=== PATIENT | female | born 1975 | race Caucasian/White ===

== ENCOUNTER 2021-11-01 15:31 | Outpatient (RCR) | payer OTHER, SELFPAY | END 2022-06-14 13:46 | disposition home or self-care (01) | PROVIDERS: PCP Family Medicine; Visit Provider Family Medicine | DX: M54.9 Dorsalgia, unspecified (principal); M54.2 Cervicalgia; Z51.89 Encounter for other specified aftercare | CPT/HCPCS: 97012; 97110; 97162 ==

== ENCOUNTER 2021-12-29 11:57 | Outpatient (CLI) | payer OTHER, SELFPAY ==
[2021-12-31 22:22] LABS: Follicle Stimulating Hormone 30.7 IU/L
== END 2021-12-29 11:58 | disposition home or self-care (01) ==
PROVIDERS: PCP Family Medicine; Visit Provider Obstetrics & Gynecology
DX: N92.6 Irregular menstruation, unspecified (principal)
CPT/HCPCS: 83001; 84443

== ENCOUNTER 2022-01-27 07:20 | Outpatient (CLI) | payer OTHER, SELFPAY ==
--- NOTE | 2022-01-27 07:15 | CRLHL7_ITS ---
For Patients: As a result of the Century Cures Act, medical imaging exams and procedure reports are released immediately into your electronic medical record. You may view this report before your referring provider. If you have questions, please contact your health care provider. INDICATION: menorrhagia COMPARISON: 04/17/2020 TECHNIQUE: 2D quigley scale and color Doppler images were acquired of the pelvis using a transabdominal and transvaginal approach. FINDINGS: Sonographic images demonstrate a normal size and smooth outer contour of the uterus. Uterus measures 9.7 cm in length by 4.5 cm in AP diameter by 5.6 cm in transverse dimension. The myometrium has a normal uniform echotexture. The endometrial lining measures 12 mm in composite thickness. The right ovary measures 2.4 x 1.4 x 1.9 cm in size and the left ovary measures 3.2 x 1.9 x 2.3 cm. The ovaries demonstrate normal arterial and venous blood flow on color Doppler analysis. There are no suspicious fluid collections within the cul-de-sac. IMPRESSION: Endometrial thickness 12 millimeters. No uterine fibroid. Dictated by Petey Snell MD @ 01/28/2022 11:44:01 AM (Electronically Signed)
== END 2022-01-27 07:21 | disposition home or self-care (01) ==
LOC: US 07:21
PROVIDERS: PCP Family Medicine; Visit Provider Obstetrics & Gynecology
DX: N92.0 Excessive and frequent menstruation with regular cycle (principal); R93.89 Abnormal findings on diagnostic imaging of other specified body structures
CPT/HCPCS: 76830; 76856

== ENCOUNTER 2022-11-21 08:46 | Outpatient (CLI) | payer OTHER, SELFPAY | END 2022-11-21 08:47 | disposition home or self-care (01) | LOC: NFLDREF 08:48 | PROVIDERS: PCP Family Medicine; Visit Provider Obstetrics & Gynecology | DX: R30.9 Painful micturition, unspecified (principal) | CPT/HCPCS: 87086 ==

== ENCOUNTER 2022-12-14 07:16 | Emergency (ER) | payer OTHER, SELFPAY ==
[2022-12-14 07:30] VITALS: BP 106/71; PULSE 86; RESP 16; TEMP 36.6; O2SAT 100; BMI 20.8
[2022-12-14 07:44] LABS: Appearance Urine Slightly Cloudy (Clear); Bilirubin Urine 1+ (Negative); Blood Urine 3+ (Negative); Color Urine Brown (Yellow); Glucose Urine Negative (Negative); Ketones Urine Trace (Negative); Leukocyte Esterase Urine Trace (Negative); Nitrite Urine Positive (Negative); Protein Urine 3+ (Negative); Specific Gravity Urine >= 1.030 (1.000-1.030)
[2022-12-14 07:53] LABS: Bacteria Urine Many; RBC Urine >100 (0-2); Squamous Epithelial Cell Urine Few (None-Few); WBC Urine 50-100 (0-5)
[2022-12-14 07:55] LABS: WBC Clumps Urine Few
--- NOTE | 2022-12-14 08:07 | ED_ITS ---
HPI - General Adult General Chief complaint: Urogenital Problems, Female Stated complaint: bladder infection Time Seen by Provider: 12/14/22 07:57 History of Present Illness HPI narrative: Rosanne is a 47-year-old female who is very pleasant who has had a urinary tract infection symptoms since yesterday. She has had several since October. She has had trouble with this in the past. No other specific complaints. Patient denies a significant fever rigors, does report a little bit of suprapubic discomfort, hematuria Related Data Home Medications Medication Instructions Recorded Confirmed Lactobacillus cap PO QDAY 01/27/22 01/27/22 acidophil,plantar-Bifido no.7 15 billion cell capsule (up4 Probiotics Adult) multivitamin 1 tab PO QAM 01/27/22 12/14/22 Previous Rx's Medication Instructions Recorded ciprofloxacin HCl 250 mg tablet 250 mg PO BID #10 tabs 12/14/22 (Cipro) Allergies Allergy/AdvReac Type Severity Reaction Status Date / Time Sulfa (Sulfonamide Allergy Severe tongue and Verified 12/14/22 07:30 Antibiotics) lip swelling Review of Systems Status of ROS: Reports: 6 or more systems reviewed and unremarkable except as noted in History and below PFSH PFS Medical History Irregular menstrual cycle ?N92.6 - Irregular menstruation, unspecified (ICD-10) Methicillin resistant Staphylococcus aureus culture positive (2014) ?Z22.322 - Carrier or suspected carrier of Methicillin resistant Staphylococcus aureus (ICD-10) Dysfunction of eustachian tube ?H69.80 - Other specified disorders of Eustachian tube, unspecified ear (ICD- 10) History of hypothyroidism ?Z86.39 - Personal history of other endocrine, nutritional and metabolic disease (ICD-10) Surgical History History of tonsillectomy (1985) ?Z90.89 - Acquired absence of other organs (ICD-10) History of section (1997) ?Z98.891 - History of uterine scar from previous surgery (ICD-10) Family History Paternal Grandfather Breast cancer Father Diabetes Maternal Grandfather Myocardial infarction, Onset Age: 60 Mother Breast cancer, Onset Age: 66 Social History Narrative: Does not drink alcohol 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 , customer service Celine, 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 No cyanosis Const: Vital Signs, click to edit/add: Vital Signs - 24 hr 12/14/22 07:30 Temperature 98 F Pulse Rate [Pulse Oximeter] 86 Respiratory Rate 16 Blood Pressure [Ri ght Upper Arm] 106/71 Pulse Oximetry 100 Oxygen Delivery Me thod Room Air Course Vital Signs Vital signs: Initial Vital Signs Temperature 98 F 12/14/22 07:30 Temperature Source Temporal Artery Scan 12/14/22 07:30 Pulse Rate 86 12/14/22 07:30 Respiratory Rate 16 12/14/22 07:30 Blood Pressure 106/71 12/14/22 07:30 Blood Pressure Mean 82 12/14/22 07:30 Blood Pressure Position Sitting 12/14/22 07:30 Pulse Oximetry 100 12/14/22 07:30 Oxygen Delivery Method Room Air 12/14/22 07:30 Vital Signs Temperature 98 F 12/14/22 07:30 Pulse Rate 86 12/14/22 07:30 Respiratory Rate 16 12/14/22 07:30 Blood Pressure 106/71 12/14/22 07:30 Pulse Oximetry 100 12/14/22 07:30 Oxygen Delivery Method Room Air 12/14/22 07:30 Temperature 98 F 12/14/22 07:30 Pulse Rate 86 12/14/22 07:30 Respiratory Rate 16 12/14/22 07:30 Blood Pressure 106/71 12/14/22 07:30 Pulse Oximetry 100 12/14/22 07:30 Oxygen Delivery Method Room Air 12/14/22 07:30 Medical Decision Making MDM Narrative Medical decision making narrative: 47 year white female with a history of UTI with a urinary tract infection. Patient did not appear to have flank tenderness consistent with pyelo or fever. I think at this point given she has 50-100 white cells per high-powered field and red cells, will treat with IM Rocephin now and then Cipro for home. Rest fluids observation light activity, return to primary care as needed, return to ED problems or concerns or worsening. Lab Data Labs: Lab Results 12/14/22 Range/Units 07:35 Urine Color Brown A (Yellow) Urine Appearance Slightly Cloudy A (Clear) Urine pH 6.0 (5.0-8.5) Ur Specific [place] >= 1.030 (1.000-1.030) Urine Protein 3+ A (Negative) Urine Glucose (UA) Negative (Negative) Urine Ketones Trace A (Negative) Urine Blood 3+ A (Negative) Urine Nitrite Positive A (Negative) Urine Bilirubin 1+ A (Negative) Urine Urobilinogen 1.0 (0.2-1.0) Ur Leukocyte Esterase Trace A (Negative) Urine RBC >100 A (0-2) Urine WBC 50-100 A (0-5) Urine WBC Clumps Few A (None) Ur Squamous Epith Cells Few (None-Few) Urine Bacteria Many A (None) Discharge Plan Discharge Clinical Impression: UTI (urinary tract infection) Patient Disposition: Home, Self-Care Condition: Stable Additional Instructions: Rest fluids, light activity, antibiotics as prescribed. Return to primary care as needed. Activity Level: Light activity Discharge Diet: Regular Prescriptions: New ciprofloxacin HCl [Cipro] 250 mg tablet 250 mg PO BID Qty: 10 0RF No Action up4 Probiotics Adult 15 billion cell capsule PO QDAY multivitamin Tablet 1 tab PO QAM Follow Up/Referrals: Darlene Wilde MD [Primary Care Provider] - Stand Alone Forms: [employer] Info Instructions
[2022-12-14] MEDS: LIDOCAINE 1% 5 ml (pf) 5 ML VIAL 1 ML IM (08:10)
[2022-12-14] MEDS: cefTRIAXone 500 MG VIAL IM (08:10)
== END 2022-12-14 08:20 | disposition home or self-care (01) ==
LOC: ED 08:17
PROVIDERS: Emergency Provider Family Medicine; PCP Family Medicine
DX: N39.0 Urinary tract infection, site not specified (principal)
CPT/HCPCS: 81001; 87086; 96372; 99283; J0696

== ENCOUNTER 2023-01-30 11:43 | Outpatient (CLI) | payer OTHER, SELFPAY | END 2023-01-30 11:44 | disposition home or self-care (01) | LOC: NFLDREF 11:45 | PROVIDERS: PCP Family Medicine; Visit Provider Family Medicine | DX: U07.1 COVID-19 (principal) | CPT/HCPCS: 80048 ==

== ENCOUNTER 2023-02-07 10:27 | Outpatient (CLI) | payer OTHER, SELFPAY ==
[2023-02-09 03:00] LABS: Bacterial Vaginosis by TMA Negative; Candida glabrata by TMA Negative; Candida species by TMA Positive; Trichomonas vaginalis by TMA Negative
== END 2023-02-07 10:28 | disposition home or self-care (01) ==
PROVIDERS: PCP Family Medicine; Visit Provider Obstetrics & Gynecology
DX: B37.31 Acute candidiasis of vulva and vagina (principal)
CPT/HCPCS: 81513; 87086; 87481; 87661

== ENCOUNTER 2023-02-23 16:49 | Emergency (ER) | payer OTHER, SELFPAY ==
[2023-02-23 16:53] VITALS: BP 129/84; PULSE 82; RESP 16; TEMP 36.5; O2SAT 100; BMI 21.3
--- NOTE | 2023-02-23 17:26 | CRLHL7_ITS ---
For Patients: As a result of the Century Cures Act, medical imaging exams and procedure reports are released immediately into your electronic medical record. You may view this report before your referring provider. If you have questions, please contact your health care provider. INDICATION: Abnormal bleeding. TECHNIQUE: Transvaginal pelvic ultrasound examination was performed. Real-time sonographic images with spectral and color Doppler imaging of the ovaries were obtained. COMPARISON: Pelvic ultrasound 01/27/2022. FINDINGS: Uterus: 9.9 x 4.4 x 5.2 cm. Normal echotexture of the myometrium. No uterine masses. Endometrium: Endometrial thickness measures 15 mm. Thickened and heterogeneous appearance of the endometrium. Right ovary: 3.2 x 0.8 x 2.2 cm. No ovarian or adnexal masses. Normal arterial and venous blood flow on color Doppler imaging. Left ovary: 4.2 x 1.7 x 2.8 cm. No ovarian or adnexal masses. Normal arterial and venous blood flow on color Doppler imaging. Cul-de-sac: No significant free fluid. IMPRESSION: Endometrial thickness measuring 15 mm. No uterine fibroids identified. Dictated by Zev Cavazso MD @ 02/23/2023 7:10:24 PM (Electronically Signed)
--- NOTE | 2023-02-23 17:30 | ED.FEMALEGU ---
HPI - Female Genitourinary General Chief complaint: Urogenital Problems, Female Stated complaint: vaginal bleeding Time Seen by Provider: 02/23/23 16:56 History of Present Illness HPI Narrative: This 47-year-old female comes in reporting persistent vaginal bleeding over the past 9 days. It seemed to be worse today with bright red blood. She states that she has changed her pad about 4 times today. She does not report any lightheadedness or shortness of breath. She states that her last menses was about 3 months ago. She has been using a vaginal estrogen cream recently. Related Data Home Medications Medication Instructions Recorded Confirmed Lactobacillus cap PO QDAY 01/27/22 02/07/23 acidophil,plantar-Bifido no.7 15 billion cell capsule (up4 Probiotics Adult) multivitamin 1 tab PO QAM 01/27/22 02/07/23 Previous Rx's Medication Instructions Recorded estradiol 0.01% (0.1 mg/gram) 0.5 g vaginal 2XW #42.5 grams 02/07/23 vaginal cream (Estrace) fluconazole 150 mg tablet 150 mg PO QDAY 1 dose #1 tab 02/09/23 medroxyprogesterone 10 mg tablet 10 mg PO TIDWM #21 tabs 02/23/23 (Provera) Allergies Allergy/AdvReac Type Severity Reaction Status Date / Time Sulfa (Sulfonamide Allergy Severe tongue and Verified 02/23/23 16:56 Antibiotics) lip swelling Review of Systems Status of ROS: Reports: 10 or more systems reviewed and unremarkable except as noted in History and below Narrative: Constitutional: No fevers, no weight gain or loss. Eyes: No discharge. No vision changes. HENT: No congestion, no sore throat, no ear pain. Cardiovascular: No chest pain, no palpitations. Respiratory: No shortness of breath, no wheezes, no cough. Gastrointestinal: No abdominal pain, no vomiting, no diarrhea. Genitourinary: No dysuria, no hematuria. Vaginal bleeding as described above. Musculoskeletal: Normal range of motion. Skin: No rashes, no pruritis. Neurological: No dizziness, weakness, sensory change, speech change. Endo/Heme/Allergies: No bruising or bleeding. No polydipsia. Pysch: no suicidality, no anxiety, no insomnia. All other systems reviewed and are negative. [facility] Medical History (Updated 02/23/23 @ 17:50 by Terry Luther MD) COVID-19 ?U07.1 - COVID-19 (ICD-10) Anxiety (03/31/09) ?F41.9 - Anxiety disorder, unspecified (ICD-10) Irregular menstrual cycle ?N92.6 - Irregular menstruation, unspecified (ICD-10) Methicillin resistant Staphylococcus aureus culture positive (2014) ?Z22.322 - Carrier or suspected carrier of Methicillin resistant Staphylococcus aureus (ICD-10) Dysfunction of eustachian tube ?H69.80 - Other specified disorders of Eustachian tube, unspecified ear (ICD-10) History of hypothyroidism ?Z86.39 - Personal history of other endocrine, nutritional and metabolic disease (ICD-10) Surgical History History of tonsillectomy (1985) ?Z90.89 - Acquired absence of other organs (ICD-10) History of section (1997) ?Z98.891 - History of uterine scar from previous surgery (ICD-10) Family History Paternal Grandfather Breast cancer Father Diabetes High blood pressure High cholesterol Maternal Grandfather Myocardial infarction, Onset Age: 60 Mother Breast cancer, Onset Age: 66 Brother Thyroid disease Social History Narrative: Does not drink alcohol 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 HEENT: Normocephalic, atraumatic. Neck: Normal range of motion. Nontender. Supple. Heart: Intact distal pulses. Lungs: No chest discomfort. No wheezes, rhonchi, or rales. Abdomen: Nontender. Back: Normal range of motion. Extremities: Normal range of motion. No injury. Skin: Intact. No rash. Warm. No erythema or pallor. Neurologic: No altered sensation. No weakness. Alert and oriented. Psychiatric: No suicidality. No anxiety or depression. No insomnia. Nursing notes and vitals signs are reviewed. Const: Vital Signs, click to edit/add: Vital Signs - 24 hr 02/23/23 16:53 Temperature 97.7 F Pulse Rate [Right Pulse Oximeter] 82 Respiratory Rate 16 Blood Pressure [Ri ght Upper Arm] 129/84 Pulse Oximetry 100 Oxygen Delivery Me thod Room Air Course Vital Signs Vital signs: Initial Vital Signs Temperature 97.7 F 02/23/23 16:53 Temperature Source Temporal Artery Scan 02/23/23 16:53 Pulse Rate 82 02/23/23 16:53 Pulse Rhythm Regular 02/23/23 16:53 Pulse Strength 3+ Normal 02/23/23 16:53 Respiratory Rate 16 02/23/23 16:53 Blood Pressure 129/84 02/23/23 16:53 Blood Pressure Mean 99 02/23/23 16:53 Blood Pressure Position Sitting 02/23/23 16:53 Pulse Oximetry 100 02/23/23 16:53 Oxygen Delivery Method Room Air 02/23/23 16:53 Vital Signs Temperature 97.7 F 02/23/23 16:53 Pulse Rate 82 02/23/23 16:53 Respiratory Rate 16 02/23/23 16:53 Blood Pressure 129/84 02/23/23 16:53 Pulse Oximetry 100 02/23/23 16:53 Oxygen Delivery Method Room Air 02/23/23 16:53 Temperature 97.7 F 02/23/23 16:53 Pulse Rate 82 02/23/23 16:53 Respiratory Rate 16 02/23/23 16:53 Blood Pressure 129/84 02/23/23 16:53 Pulse Oximetry 100 02/23/23 16:53 Oxygen Delivery Method Room Air 02/23/23 16:53 MDM - Female Genitourinary MDM Narrative Medical decision making narrative: This 47-year-old female comes in with persistent uterine bleeding over these past 9 days. I did speak with the OBGYN physician on-call, Dr. Cavazos, who recommended that she have an ultrasound today. The patient does have a follow-up appointment with her physician next week wear further evaluation and treatment can occur. The patient does have normal vital signs and otherwise is in no acute distress. The patient received a prescription for Provera 10 mg 3 times daily for 7 days. Discharge Plan Discharge Clinical Impression: DUB (dysfunctional uterine bleeding) Patient Disposition: Home, Self-Care Condition: Stable Additional Instructions: Take medication as prescribed. Follow-up with OBGYN clinic as scheduled. Return if worsening. Prescriptions: New medroxyprogesterone [Provera] 10 mg tablet 10 mg PO TIDWM Qty: 21 0RF No Action up4 Probiotics Adult 15 billion cell capsule PO QDAY multivitamin Tablet 1 tab PO QAM estradiol [Estrace] 0.01 % (0.1 mg/gram) cream 0.5 g vaginal 2XW Qty: 42.5 3RF Rx Instructions: Use nightly for 2 weeks, then twice weekly. May apply with finger. fluconazole 150 mg tablet 150 mg PO QDAY Qty: 1 0RF Rx Instructions: administer on day 1 of therapy Follow Up/Referrals: Darlene Wilde MD [Primary Care Provider] - Stand Alone Forms: [employer] Info Instructions
== END 2023-02-23 18:31 | disposition home or self-care (01) ==
PROVIDERS: Emergency Provider Emergency Medicine Emergency Medical Services; PCP Family Medicine
DX: N93.8 Other specified abnormal uterine and vaginal bleeding (principal)
CPT/HCPCS: 76830; 99284

== ENCOUNTER 2023-03-02 09:08 | Emergency (ER) | payer OTHER, SELFPAY ==
[2023-03-02 09:15] VITALS: BP 126/86; PULSE 108; RESP 16; TEMP 37.3; O2SAT 100; BMI 21.3
--- NOTE | 2023-03-02 09:37 | ED.PREGNANCY ---
HPI - General Date Seen: 03/02/23 Chief complaint: Vaginal Bleeding Stated complaint: Hemorrhaging Time Seen by Provider: 03/02/23 09:22 Source: patient Mode of arrival: ambulatory Limitations: no limitations History of Present Illness HPI Narrative: Patient is a 47-year-old female with a history of dysfunctional uterine bleeding presenting to the emergency department for vaginal bleeding. Her OB, Dr. Bruce, has been working with her for dysfunctional uterine bleeding. Patient is on Provera for the bleeding. She decreased the dose per her OB Gyne recommendation last night. She does started noticing vaginal bleeding had lower abdominal and pelvic cramping. This morning she woke up and noticed a large amount of vaginal bleeding. She states she is going through a pad every 30-40 minutes over the past 2 hours. ML spoke to her field cane scaler today and was told to come to the emergency department for evaluation. Denies fevers, chills, chest pain, shortness of breath, lightheadedness, dizziness, nausea/vomiting, weakness. No other concerns noted at this time Related Data Home Medications Medication Instructions Recorded Confirmed Lactobacillus cap PO QDAY 01/27/22 02/07/23 acidophil,plantar-Bifido no.7 15 billion cell capsule (up4 Probiotics Adult) multivitamin 1 tab PO QAM 01/27/22 02/07/23 Previous Rx's Medication Instructions Recorded estradiol 0.01% (0.1 mg/gram) 0.5 g vaginal 2XW #42.5 grams 02/07/23 vaginal cream (Estrace) medroxyprogesterone 10 mg tablet 10 mg PO TIDWM #21 tabs 02/23/23 (Provera) medroxyprogesterone 10 mg tablet 10 mg PO QDAY #45 tabs 03/01/23 Allergies Allergy/AdvReac Type Severity Reaction Status Date / Time Sulfa (Sulfonamide Allergy Severe tongue and Verified 03/01/23 09:53 Antibiotics) lip swelling Review of Systems Status of ROS: Reports: 10 or more systems reviewed and unremarkable except as noted in History and below [facility] Medical History (Updated 03/02/23 @ 10:49 by Allan Farmer DO) COVID-19 ?U07.1 - COVID-19 (ICD-10) Anxiety (03/31/09) ?F41.9 - Anxiety disorder, unspecified (ICD-10) Irregular menstrual cycle ?N92.6 - Irregular menstruation, unspecified (ICD-10) Methicillin resistant Staphylococcus aureus culture positive (2014) ?Z22.322 - Carrier or suspected carrier of Methicillin resistant Staphylococcus aureus (ICD-10) Dysfunction of eustachian tube ?H69.80 - Other specified disorders of Eustachian tube, unspecified ear (ICD-10) History of hypothyroidism ?Z86.39 - Personal history of other endocrine, nutritional and metabolic disease (ICD-10) Surgical History History of tonsillectomy (1985) ?Z90.89 - Acquired absence of other organs (ICD-10) History of section (1997) ?Z98.891 - History of uterine scar from previous surgery (ICD-10) Family History Paternal Grandfather Breast cancer Father Diabetes High blood pressure High cholesterol Maternal Grandfather Myocardial infarction, Onset Age: 60 Mother Breast cancer, Onset Age: 66 Brother Thyroid disease Social History Narrative: Does not drink alcohol 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 , customer service Celine, 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 Moist mucous membranes. Neck: Symmetric, trachea midline, No thyromegaly. CVS: RRR, No murmurs or gallops. Peripheral pulses 2+ and equal in all extremities RESP: Unlabored respiratory effort. Clear to auscultation bilaterally. GI: Nontender/Nondistended, No rebound or guarding. : Pelvic exam shows small amount of bleeding in the vaginal vault. Unable to visualize cervix MSK:Extremities w/o deformity, Normal Active ROM Skin: Warm, Dry. No rashes or lesions. Neuro: Normal Muscle tone, No focal neurological deficits. Psych: Awake, Alert, & Oriented x3. Appropriate mood and affect. Const: Vital Signs, click to edit/add: Vital Signs - 24 hr 03/02/23 09:15 Temperature 99.2 F Pulse Rate [Pulse Oximeter] 108 H Respiratory Rate 16 Blood Pressure [Ri ght Upper Arm] 126/86 Pulse Oximetry 100 Oxygen Delivery Me thod Room Air Course Vital Signs Vital signs: Initial Vital Signs Temperature 99.2 F 03/02/23 09:15 Temperature Source Temporal Artery Scan 03/02/23 09:15 Pulse Rate 108 H 03/02/23 09:15 Pulse Rhythm Regular 03/02/23 09:15 Respiratory Rate 16 03/02/23 09:15 Blood Pressure 126/86 03/02/23 09:15 Blood Pressure Mean 99 03/02/23 09:15 Blood Pressure Position Sitting 03/02/23 09:15 Pulse Oximetry 100 03/02/23 09:15 Oxygen Delivery Method Room Air 03/02/23 09:15 Vital Signs Temperature 99.2 F 03/02/23 09:15 Pulse Rate 108 H 03/02/23 09:15 Respiratory Rate 16 03/02/23 09:15 Blood Pressure 126/86 03/02/23 09:15 Pulse Oximetry 100 03/02/23 09:15 Oxygen Delivery Method Room Air 03/02/23 09:15 Temperature 99.2 F 03/02/23 09:15 Pulse Rate 108 H 03/02/23 09:15 Respiratory Rate 16 03/02/23 09:15 Blood Pressure 126/86 03/02/23 09:15 Pulse Oximetry 100 03/02/23 09:15 Oxygen Delivery Method Room Air 03/02/23 09:15 Medications Administered Medications: Discontinued Medications Generic Name Dose Route Start Last Admin Trade Name Freq PRN Reason Stop Dose Admin Tranexamic Acid 1,000 mg 03/02/23 09:59 03/02/23 10:14 Tranexamic Acid 100 Mg/Ml Inj IV 03/02/23 10:00 1,000 mg ONCE ONE Administration MDM - OB/Uterine Contractions MDM Narrative Medical decision making narrative: Patient is a 47-year-old female presenting to emergency department for vaginal bleeding. Vital signs are stable. I did do a pelvic exam which showed a small amount of bleeding but no clear source is a was unable to find the cervix due to the patient stating it was painful and not tolerating the exam. Of note she just talking to Tylenol but very shortly prior to my exam which could be why I did not see much blood. I spoke to Dr. Bruce who recommended a hemoglobin check and 1 g of TXA. He has not believe the patient needs a repeat ultrasound since she just had 1 a week ago considering my pelvic exam findings. She does states she already sent the prescription for TXA to the patient's pharmacy. Deformity to have the patient continue take progesterone until she can brick picker the TXA. Patient will be discharged home. Patient is feeling well and agrees with this plan. Lab Data Labs: Lab Results 03/02/23 Range/Units 09:44 WBC 3.44 L (4.50-11.00) K/uL RBC 4.15 (4.00-5.20) m/uL Hgb 12.4 (12.0-16.0) gm/dL Hct 38.2 (33.0-51.0) % MCV 92 (80-100) fL MCH 30 (26-34) pg MCHC 33 (32-36) gm/dL RDW Coeff of Derrick 13.2 (11.5-15.5) % Plt Count 187 (140-440) K/uL Neut % (Auto) 60.7 (42.0-72.0) % Lymph % (Auto) 29.7 (20-44) % [place] % (Auto) 8.4 (0.0-11.0) % Eos % (Auto) 0.9 (0.0-7.0) % Baso % (Auto) 0.3 (0.0-3.0) % Neut # (Auto) 2.10 (1.7-7.0) K/uL Lymph # (Auto) 1.00 (0.90-2.90) K/uL [place] # (Auto) 0.30 (0.00-0.90) K/UL Eos # (Auto) 0.00 (0.00-0.50) K/uL Baso # (Auto) 0.00 (0.00-0.30) K/uL Abs Immat Gran (auto) 0.00 (0.00-0.30) K/uL Imm/Tot Granulo (auto) 0.0 % Blood Type B Positive Antibody Screen NEGATIVE Discharge Plan Discharge Clinical Impression: DUB (dysfunctional uterine bleeding) Patient Disposition: Home, Self-Care Condition: Stable Instructions: Abnormal (Dysfunctional) Uterine Bleeding (ED) Additional Instructions: [facility] to [facility] tentatively on 03/10/2022. Her number is [phone]. Take 1 more dose of progesterone today if you cannot brick picker the TXA. Once you are able to brick picker the TXA prescription stop taking the progesterone Prescriptions: No Action medroxyprogesterone 10 mg tablet 10 mg PO QDAY Qty: 45 0RF Rx Instructions: Take 1 tablet daily to 3 times daily as needed for heavy vaginal bleeding. up4 Probiotics Adult 15 billion cell capsule PO QDAY multivitamin Tablet 1 tab PO QAM estradiol [Estrace] 0.01 % (0.1 mg/gram) cream 0.5 g vaginal 2XW Qty: 42.5 3RF Rx Instructions: Use nightly for 2 weeks, then twice weekly. May apply with finger. medroxyprogesterone [Provera] 10 mg tablet 10 mg PO TIDWM Qty: 21 0RF Follow Up/Referrals: Darlene Wilde MD [Primary Care Provider] - Stand Alone Forms: [employer] (powering [employer])th Info Instructions
[2023-03-02 10:01] LABS: Basophils Percent Auto 0.3 % (0.0-3.0); Eosinophils Percent Auto 0.9 % (0.0-7.0); Hematocrit 38.2 % (33.0-51.0); Hemoglobin* 12.4 gm/dL (12.0-16.0); Lymphocytes Percent Auto 29.7 % (20-44); Mean Corpuscular HGB Conc 33 gm/dL (32-36); Mean Corpuscular Hemoglobin 30 pg (26-34); Mean Corpuscular Volume 92 fL (80-100); Monocytes Percent Auto 8.4 % (0.0-11.0); Neutrophils Percent Auto 60.7 % (42.0-72.0); Platelet Count* 187 K/uL (140-440); RDW Coefficient of Variation % 13.2 % (11.5-15.5); Red Blood Count 4.15 m/uL (4.00-5.20); White Blood Count* 3.44 K/uL (4.50-11.00)
[2023-03-02 10:05] VITALS: BP 105/77; PULSE 75; RESP 14; O2SAT 100
[2023-03-02 10:05] LABS: Slide Review Reflex No
[2023-03-02] MEDS: TRANEXAMIC ACID 100 MG/ML INJ 1000 MG IV (10:14)
[2023-03-02 10:31] VITALS: BP 101/74; PULSE 80; RESP 12; O2SAT 99
== END 2023-03-02 11:01 | disposition home or self-care (01) ==
PROVIDERS: Emergency Provider Student in an Organized Health Care Education/Training Program; PCP Family Medicine
DX: N93.8 Other specified abnormal uterine and vaginal bleeding (principal)
CPT/HCPCS: 36415; 85025; 86850; 86900; 86901; 99283; 99284

== ENCOUNTER 2023-03-10 07:47 | Day surgery (SDC) | payer OTHER, SELFPAY ==
[2023-03-10] VITALS (7 sets, daily range): BP systolic 100–121; BP diastolic 66–77; PULSE 84–98; RESP 16; TEMP 36.3–37; O2SAT 93–99; BMI 19.5
[2023-03-10] MEDS: LACTATED RINGERS 1000 ML 1,000 ML 100 ML IV (07:55)
[2023-03-10 08:21] LABS: Ur HCG Qualitative* Negative (Negative)
[2023-03-10 08:24] LABS: Hemoglobin* 12.5 gm/dL (12.0-16.0)
[2023-03-10] MEDS: SODIUM CHLORIDE 0.9 % (FLUSH) 10 ML SYRINGE IVF (08:26)
--- NOTE | 2023-03-10 09:22 | W.PM.H&PU ---
History & Physical Update History & Physical Update H&P Reviewed and patient assessed: No changes noted
--- NOTE | 2023-03-10 09:23 | P.PCN_ITS ---
Procedure Note Date Seen: 03/10/23 Date of procedure: 03/10/23 Will [facility] bill your pro fee for this procedure?: Yes Procedure: Preoperative diagnosis: 47 yo with menometrorrhagia. Postoperative diagnosis: Same. Procedure: Hysteroscopy, dilation and curettage, endometrial ablation. Anesthesia: Mac and paracervical block. Surgeon: Promise Bruce Assist: None Estimated blood loss: [] mL IV Fluid: 1000 mL Specimen: Endometrial curettings, sent to path. Findings: On exam under anesthesia: The cervix and vagina appear normal. The uterus was mid position, approximately 8-10 10 week size, mobile and without masses or nodularity palpable. Adnexa were without mass or fullness palpable bilaterally. On hysteroscopy: Endometrium appeared essentially normal with 2 possible polypoid masses. No other abnormalities noted. The uterus sounded to 9.5 cm. Cervical length 4 cm. Cavity length: 5.5. Procedure: Rosanne was taken to the operating room where conscious sedation was found to be adequate. She was placed in a dorsal lithotomy position and an exam under anesthesia was performed with the findings stated above. She was then prepped and draped in a normal sterile manner. An a bivalve is sterile speculum was placed in the vaginal canal. A paracervical block was placed using 0.5% Marcaine: 5 mL were injected at the 4 and 8 o'clock positions on the cervix. A long Allis clamp was placed on the anterior lip of the cervix. The cervix was then dilated to Hegar 6. Uterus sounded to 9.5 cm. The cervix measured 4.0 cm. There for the cavity length was 5.5 cm. The Truclear hysteroscope was advanced into the uterus. A diagnostic hysteroscopy performed with normal saline as the insufflation medium. Findings are stated above. The Truclear incisor was then advanced into the camera. And the curettage performed with thi s incisor. The curettage took approximately 2 min. The cavity appeared normal once the curettage was performed completed. Total saline used for insufflation: 770 mL. Deficit 95 mL. The hysteroscope was removed. The cervix was then dilated to Hegar 8. The Alie device was advanced into the uterus. The cavity check was completed and the ablation took place over 2 min. Patient received 30 mg of Toradol IV and 2 gm of Ancef prior to the procedure. The Alie was removed, the hysteroscope readvanced to document ablation of the entire cavity. The hysteroscope was then removed. The Allis clamp removed from the anterior lip of the cervix. Nothing was needed to obtain hemostasis The patient tolerated this procedure well. Sponge, lap and instrument counts were correct x2 at the end of the procedure and the patient was taken to the recovery area in stable condition.
--- NOTE | 2023-03-10 10:16 | W.ANESCHARGE ---
Anesthesia Charges Start Date/Time Anesthesia Start Date: 03/10/23 Anesthesia Start Time: 09:32 Stop Date/Time Anesthesia Stop Date: 03/10/23 Anesthesia Stop Time: 10:17
--- NOTE | 2023-03-10 10:28 | W.ANESCHARGE ---
Anesthesia Charges Start Date/Time Anesthesia Start Date: 03/10/23 Anesthesia Start Time: 09:32 Stop Date/Time Anesthesia Stop Date: 03/10/23 Anesthesia Stop Time: 10:17
== END 2023-03-10 11:40 | disposition home or self-care (01) ==
PROVIDERS: PCP Family Medicine; Visit Provider Obstetrics & Gynecology
PROC: 0UF98ZZ Fragmentation in Uterus, Via Natural or Artificial Opening Endoscopic (ICD-10-PCS; CPT 58563; principal; 2023-03-10 09:00)
DX: N92.1 Excessive and frequent menstruation with irregular cycle (principal)
CPT/HCPCS: 58563; 00952; 36415; 81025; 85018; 88305; J1885; J2250; J2405; J2704; J3010; J3490; J7120

== ENCOUNTER 2023-03-28 19:05 | Outpatient (CLI) | payer OTHER, SELFPAY ==
--- NOTE | 2023-03-28 19:20 | CRLHL7_ITS ---
For Patients: As a result of the Century Cures Act, medical imaging exams and procedure reports are released immediately into your electronic medical record. You may view this report before your referring provider. If you have questions, please contact your health care provider. BILATERAL SCREENING MAMMOGRAM WITH COMPUTER-AIDED DETECTION AND TOMOSYNTHESIS TECHNIQUE: CC and MLO views were obtained. These mammographic images have been obtained using full-field digital technique. These mammographic images were interpreted with the benefit of computer-aided detection. Breast Tomosynthesis was used in this interpretation. COMPARISON FILM: 05/14/20, 01/15/19, 12/22/14. FINDINGS: The breasts are heterogeneously dense, which may obscure small masses IMPRESSION: There is no radiographic evidence for malignancy. ASSESSMENT: BI-RADS Category 1: Negative RECOMMENDATION: Routine screening mammogram in 1 year. A lay language report of this examination will be provided to the patient. Petey Snell M.D. Diagnostic Radiologist [email or web address] Transcribed: 4:52 p.mPattie nelson/Dictated by: Petey Snell MD @ 03/30/2023 10:52:00 AM (Electronically Signed)
== END 2023-03-28 19:06 | disposition home or self-care (01) ==
LOC: MAMMO 19:06
PROVIDERS: PCP Family Medicine; Visit Provider Family Medicine
DX: Z12.31 Encounter for screening mammogram for malignant neoplasm of breast (principal); R92.2 Inconclusive mammogram
CPT/HCPCS: 77063; 77067

== ENCOUNTER 2023-05-10 07:50 | Outpatient (CLI) | payer OTHER, SELFPAY | END 2023-05-10 07:51 | disposition home or self-care (01) | PROVIDERS: PCP Family Medicine; Visit Provider Family Medicine | DX: Z01.419 Encounter for gynecological examination (general) (routine) without abnormal findings (principal); E78.5 Hyperlipidemia, unspecified; E03.9 Hypothyroidism, unspecified; F41.9 Anxiety disorder, unspecified; R53.83 Other fatigue; M51.36 Other intervertebral disc degeneration, lumbar region; Z78.9 Other specified health status | CPT/HCPCS: 80053; 80061; 82306; 82607; 82728; 84443 ==

== ENCOUNTER 2023-05-30 08:19 | Outpatient (CLI) | payer OTHER, SELFPAY | END 2023-05-30 08:20 | disposition home or self-care (01) | LOC: NFLDREF 08:20 | PROVIDERS: PCP Family Medicine; Visit Provider Physician Assistant | DX: R31.0 Gross hematuria (principal); R30.0 Dysuria | CPT/HCPCS: 87086 ==

== ENCOUNTER 2023-08-11 07:30 | Outpatient (RCR) | payer OTHER, SELFPAY | END 2023-12-09 23:59 | disposition home or self-care (01) | PROVIDERS: PCP Family Medicine; Visit Provider Family Medicine | DX: M54.2 Cervicalgia (principal); R29.3 Abnormal posture; R53.1 Weakness; Z51.89 Encounter for other specified aftercare | CPT/HCPCS: 97110; 97140; 97162 ==

== ENCOUNTER 2024-06-05 10:37 | Outpatient (CLI) | payer OTHER, SELFPAY ==
--- NOTE | 2024-06-05 10:45 | CRLHL7_ITS ---
For Patients: As a result of the Century Cures Act, medical imaging exams and procedure reports are released immediately into your electronic medical record. You may view this report before your referring provider. If you have questions, please contact your health care provider. INDICATION: BILATERAL SCREENING MAMMOGRAM, ASYMPTOMATIC 48 Y/O FEMALE COMPARISON: 03/28/23, 05/14/20, 01/15/19 TECHNIQUE: CC and MLO views were obtained. These mammographic images have been obtained using full-field digital technique. These mammographic images were interpreted with the benefit of computer aided detection and tomosynthesis. BREAST COMPOSITION: The breasts are heterogeneously dense, which may obscure small masses. FINDINGS: No suspicious findings. ASSESSMENT: BI-RADS 1 Negative RECOMMENDATION: Annual screening mammogram. A lay language report of this examination will be provided to the patient. Dictated by: Petey Snell MD @ 06/12/2024 13:02:28 (Electronically Signed)
== END 2024-06-05 10:38 | disposition home or self-care (01) ==
LOC: MAMMO 10:38
PROVIDERS: PCP Family Medicine; Visit Provider Family Medicine
DX: Z12.31 Encounter for screening mammogram for malignant neoplasm of breast (principal); R92.333 Mammographic heterogeneous density, bilateral breasts
CPT/HCPCS: 77063; 77067